=== PATIENT | female | born 1975 | race Caucasian/White ===

== ENCOUNTER 2017-01-12 22:19 | Emergency (ER) | payer OTHER ==
[~2017-01-12] VITALS: Ht 157.5 cm; Wt 89.8 kg
--- NOTE | 2017-01-12 22:21 | NUR ---
Pt placed in bed 2 by EMS.
[2017-01-12 22:23] VITALS: BP 201/108
--- NOTE | 2017-01-12 22:46 | NUR ---
Patient being evaluated by Dr. Petty at bedside.
--- NOTE | 2017-01-12 22:50 | NUR ---
41/F [facility] [place] for evaluation of difficulty breathing after eating some ice and having a cough attack. Pt speaking in full sentences. No labored breathing noted. No use of accessory muscles. O2 sat 97% on room air. HR 118 sinus tachycardia. Hacking cough noted. Denies phlegm production. Denies recent illness. Denies pain. AOX4, ambulates with steady gait.
--- NOTE | 2017-01-12 22:55 | NUR ---
Daughter at bedside.
[2017-01-12] MEDS ORDERED: methylPREDNISolone SS 125 MG/2 ML VIAL IVP ONE (23:10)
--- NOTE | 2017-01-12 23:39 | NUR ---
Mother at bedside.
[2017-01-12] MEDS ORDERED: LISINOPRIL 10 MG TAB PO ONE (23:45)
--- NOTE | 2017-01-12 23:50 | NUR ---
Dr. Petty re-evaluating patient at bedside.
--- NOTE | 2017-01-12 23:59 | NUR ---
IV removed, catheter intact and site benign. Applied folded 4x4 gauze and tape to stop bleeding.
[2017-01-13] VITALS: BP 183/98
--- NOTE | 2017-01-13 | NUR ---
Patient discharged with v/s stable. Written and verbal after care instructions given and explained. Patient verbalized understanding. Ambulatory with steady gait. All questions addressed prior to discharge. Advised to follow up with PMD.
== END 2017-01-13 | disposition home or self-care (01) ==
LOC: MED 22:19
DX: J45.909 Unspecified asthma, uncomplicated (principal); I10 Essential (primary) hypertension
CPT/HCPCS: 71010; 81002; 81025; 96374; 99284; J2930

== ENCOUNTER 2019-03-02 16:22 | Emergency (ER) | payer OTHER ==
[~2019-03-02] VITALS: Ht 154.9 cm; Wt 93.0 kg
[2019-03-02 16:33] VITALS: BP 198/106
[2019-03-02] MEDS ORDERED: ENAL1TAB PO (16:37)
--- NOTE | 2019-03-02 16:45 | NUR ---
CAME IN WITH C/O COUGH, SORETHRAT, CONGESTION FOR 2 WEEKS, WITH BOTH EAR PAIN AND DIFF OF BREATHING DURING NIGHT TIME
[2019-03-02] MEDS ORDERED: DEXAMETHASONE 10 MG/ML VIAL IM ONE (17:15)
[2019-03-02] MEDS ORDERED: ALBUTEROL SULFATE/IPRATROPIU 3 ML SOL IH ONE (17:15)
--- NOTE | 2019-03-02 17:15 | NUR ---
RT AT BEDSIDE FRO BREATHING TREATMENT, TOLERATED WELL.
[2019-03-02 18:20] VITALS: BP 145/90
--- NOTE | 2019-03-02 18:20 | NUR ---
Patient discharged with v/s stable. Written and verbal after care instructions given and explained. Patient alert, oriented and verbalized understanding of instructions. Ambulatory with steady gait. All questions addressed prior to discharge. ID band removed. Patient advised to follow up with PMD. Rx of PROMETHAZINE,MEDROL DOSEPAK,ENALAPRIL given. Patient educated on indication of medication including possible reaction and side effects. Opportunity to ask questions provided and answered.
== END 2019-03-02 18:20 | disposition home or self-care (01) ==
LOC: MED 16:22
DX: J45.909 Unspecified asthma, uncomplicated (principal); I10 Essential (primary) hypertension; I11.0 Hypertensive heart disease with heart failure; I50.9 Heart failure, unspecified; Z79.899 Other long term (current) drug therapy; Z98.890 Other specified postprocedural states
CPT/HCPCS: 94640; 96372; 99283; J1100; J7620

== ENCOUNTER 2019-04-06 12:31 | Emergency (ER) | payer MEDICAID, OTHER ==
[~2019-04-06] VITALS: Ht 154.9 cm; Wt 90.7 kg
[~2019-04-06 12:31] MED LIST: ENAL1TAB PO
[2019-04-06 12:58] VITALS: BP 183/101
--- NOTE | 2019-04-06 13:00 | NUR ---
TO LOBBY, DR FAJARDO AWARE OF HIGH BP--PT IS AYSMPTOMATIC. AWAITING BED IN ED.
--- NOTE | 2019-04-06 14:55 | NUR ---
CALLED PT IN LOBBY, AND OUTSIDE LOBBY AREA. NO ANSWER, PT NOT IN WAITING AREA.
--- NOTE | 2019-04-06 15:24 | NUR ---
PT CALLED IN LOBBY, NO RESPONSE. PT NOT IN WAITING AREA.
--- NOTE | 2019-04-06 15:30 | NUR ---
PT CALLED IN LOBBY, NO RESPONSE, PT NOT IN WAIT AREA.
--- NOTE | 2019-04-06 15:33 | NUR ---
PATIENT LEFT WITHOUT BEING SEEN BY DR. FAJARDO. NO FURTHER CARE PROVIDED FOR PATIENT.
== END 2019-04-06 15:33 | disposition left against medical advice (07) ==
LOC: MED 12:31
DX: M54.5 Low back pain (principal); Z53.21 Procedure and treatment not carried out due to patient leaving prior to being seen by health care provider

== ENCOUNTER 2021-04-04 14:34 | Emergency (ER) | payer MEDICAID ==
[~2021-04-04] VITALS: Ht 154.9 cm; Wt 90.7 kg
[2021-04-04 14:40] VITALS: BP 203/107
--- NOTE | 2021-04-04 14:58 | NUR ---
PT AMBULATED TO BED 7
--- NOTE | 2021-04-04 15:02 | NUR ---
46Y FEMALE BIB SELF FROM HOME DUE TO BILATERAL KNEE PAIN, R SHOULDER PAIN, AND RASH ON BILATERAL WRIST. PER PATIENT SHE HAS HAD THE KNEE PAIN X3 MONTHS. PT STATED SHE HAS SEEN HER PRIMARY PHYSICIAN, BUT IS ONLY GIVEN TYLENOL WHICH PROVIDES NO RELIEF. PT IS ABLE TO AMBULATE, BUT STATED HER R KNEE IS SWELLING UP DUE TO PAIN. PT STATED TH R SHOULDER PAIN STARTED THIS AM AND HAS LOSS IN ROM AT THIS TIME. PT ALSO C/O OF RASH ON BILATERAL WRIST. SMALL BLISTERS NOTED ON WRIST. PT PROVIDED WITH GOWN PMH: HTN, THYROID, ANEMIA NKA
--- NOTE | 2021-04-04 15:41 | NUR ---
PA FARIAS AT PATIENT BEDSIDE EVALUATING PT
--- NOTE | 2021-04-04 15:54 | NUR ---
XRAY AT PATIENT BEDSIDE
[2021-04-04] MEDS ORDERED: IBUPROFEN 800 MG TAB PO ONE (15:55)
[2021-04-04] MEDS ORDERED: ACET-8386 PO (17:03)
[2021-04-04] MEDS ORDERED: ACYC400T14 PO (17:03)
--- NOTE | 2021-04-04 17:08 | NUR ---
Patient appears to be resting comfortably in bed. Vital Signs within normal limits. Respirations even and unlabored. PT PROVIDED WITH KNEE IMMOBLIZER
[2021-04-04 17:28] VITALS: BP 160/88
--- NOTE | 2021-04-04 17:28 | NUR ---
Patient discharged with v/s stable. Written and verbal after care instructions given and explained. Patient alert, oriented and verbalized understanding of instructions. Ambulatory with steady gait. All questions addressed prior to discharge. ID band removed. Patient advised to follow up with PMD. Rx of HYDROCODONE/ACETAMINOPHEN AND ZOVIRAX given. Patient educated on indication of medication including possible reaction and side effects. Opportunity to ask questions provided and answered.
== END 2021-04-04 17:28 | disposition home or self-care (01) ==
LOC: MED 14:34
DX: S86.911A Strain of unspecified muscle(s) and tendon(s) at lower leg level, right leg, initial encounter (principal); R21 Rash and other nonspecific skin eruption; M25.562 Pain in left knee; I10 Essential (primary) hypertension; Z86.39 Personal history of other endocrine, nutritional and metabolic disease; Z79.899 Other long term (current) drug therapy; Z79.891 Long term (current) use of opiate analgesic; X58.XXXA Exposure to other specified factors, initial encounter; Y92.89 Other specified places as the place of occurrence of the external cause; Y93.89 Activity, other specified; Y99.8 Other external cause status
CPT/HCPCS: 29505; 73562; 99283; Q0092